=== PATIENT | male | born 1975 | race Caucasian/White ===

== ENCOUNTER 2024-10-21 13:57 | Observation (INO) | payer OTHER ==
[2024-10-21 14:13] LABS: Glucose,Whole Blood 122 mg/dL (70-110)
--- NOTE | 2024-10-21 14:34 | ED ---
General Adult HPI - General Chief complaint: Neuro Symptoms/Deficit Stated complaint: neuro symptoms, ETOH Time Seen by Provider: 10/21/24 14:05 Source: EMS, RN notes reviewed, old records reviewed Mode of arrival: EMS Limitations: altered mental status - History of Present Illness Initial comments: This is a 49-year-old male who admitted to EMS that he had been drinking today. Patient has supposedly a history of stroke EMS was called to scene because girlfriend stated he had some facial droop for the last 2 days according to her and was having difficulty walking. When I spoke with the patient he refused to answer any of my questions and did not want to be treated however he was intoxicated so we continue to treat the patient as if he was having a stroke even though there was no obvious signs of stroke at this time he no longer had a facial droop he did have a facial droop for EMS according to what I was told. Patient is moving all 4 extremities but he appears very intoxicated - Related Data Home Medications Medication Instructions Recorded Confirmed No Known Home Medications 10/21/24 10/21/24 Allergies Allergy/AdvReac Type Severity Reaction Status Date / Time peanut Allergy Itching Verified 10/21/24 14:22 Penicillins Allergy Rash/Hives Verified 10/21/24 14:22 Review of Systems ROS Statement: Those systems with pertinent positive or pertinent negative responses have been documented in the HPI. ROS Other: All systems not noted in ROS Statement are negative. Past Medical History Past Medical History: No Reported History History of Any Multi-Drug Resistant Organisms: None Reported Past Surgical History: Tonsillectomy Past Psychological History: No Psychological Hx Reported Smoking Status: Current every day smoker Past Alcohol Use History: Abuse, Daily Past Drug Use History: None Reported General Exam - General Exam Comments Initial Comments: GENERAL: Patient is well-developed and well-nourished. Patient is nontoxic and well- hydrated and is in no acute distress. Patient is intoxicated ENT: Neck is soft and supple. No significant lymphadenopathy is noted. Oropharynx is clear. Moist mucous membranes. Neck has full range of motion without eliciting any pain. EYES: The sclera were anicteric and conjunctiva were pink and moist. Extraocular movements were intact and pupils were equal round and reactive to light. Eyelids were unremarkable. PULMONARY: Unlabored respirations. Good breath sounds bilaterally. No audible rales rhonchi or wheezing was noted. CARDIOVASCULAR: There is a regular rate and rhythm without any murmurs gallops or rubs. ABDOMEN: Soft and nontender with normal bowel sounds. SKIN: Skin is clear with no lesions or rashes and otherwise unremarkable. NEUROLOGIC: Patient is alert and oriented x3. Cranial nerves II through XII are grossly intact. Patient appears to be moving all 4 extremities. Patient's speech is clear MUSCULOSKELETAL: Normal extremities with adequate strength and full range of motion. LYMPHATICS: No significant lymphadenopathy is noted PSYCHIATRIC: Patient is very uncooperative Limitations: altered mental status Course Vital Signs 10/21/24 10/21/24 14:01 14:59 Temperature 97.6 F Pulse Rate 123 H 111 H Respiratory 18 16 Rate Blood Pressure 185/125 154/108 O2 Sat by Pulse 97 98 Oximetry Medical Decision Making - Medical Decision Making EKG is interpreted by myself and EKG shows sinus tachycardia at 106 bpm AR 136 QRS 117 QT was 338 QTc is 400. Patient's EKG shows no ST segment elevation or d epression. Patient has a right bundle branch block Was pt. sent in by a medical professional or institution ([facility]IRSTEN Juan, FLOOR MOLDER, urgent care, hospital, or long-term...) When possible be specific @ -No Did you speak to anyone other than the patient for history (EMS, parent, family, police, friend...)? What history was obtained from this source @ -No Did you review nursing and triage notes (agree or disagree)? Why? @ -I reviewed and agree with nursing and triage notes Were old charts reviewed (outside hosp., previous admission, EMS record, old EKG, old radiological studies, urgent care reports/EKG's, long-term records)? Report findings @ -No old charts were reviewed Differential Diagnosis? @ -Differential Dyspnea: Differential CVA Ischemic stroke, hemorrhagic stroke, brain tumor, atypical migraine, Wernicke's encephalopathy, seizure, multiple sclerosis, meningitis, encephalitis, hypog lycemia, Guillain-Davila, electrolytes disturbance, myasthenia gravis.... This is not meant to be an all-inclusive list EKG interpreted by me (3pts min.). @ -As above X-rays interpreted by me (1pt min.). @ -No patient was uncooperative CT interpreted by me (1pt min.). @ -CT of the brain shows no acute normality. Patient was uncooperative for CT angiogram U/S interpreted by me (1pt. min.). @ -None done What testing was considered but not performed or refused? (CT, X-rays, U/S, labs)? Why? @ -None What meds were considered but not given or refused? Why? @ -None Did you discuss the management of the patient with other professionals (professionals i.e. Dr., PA, FLOOR MOLDER, lab, RT, psych nurse, health care social worker, whirley operator, teacher, strike operations officer, block and case maker)? Give summary @ -I spoke with sound physicians agreed to admit the patient admit the patient wrote admitting orders Was smoking cessation discussed for >3mins.? @ -No Was critical care preformed (if so, how long)? @ -No Were there social determinants of health that impacted care today? How? (Homelessness, low income, unemployed, alcoholism, drug addiction, transportation, low edu. Level, literacy, decrease access to med. care, long-term, rehab)? @ -No Was there de-escalation of care discussed even if they declined (Discuss DNR or withdrawal of care, Hospice)? DNR status @ -No What co-morbidities impacted this encounter? (DM, HTN, Smoking, COPD, CAD, Cancer, CVA, ARF, Chemo, Hep., AIDS, mental health diagnosis, sleep apnea, morbid obesity)? @ -None Was patient admitted / discharged? Hospital course, mention meds given and route, prescriptions, significant lab abnormalities, going to OR and other pertinent info. @ -Patient was highly intoxicated. Patient needed Ativan Haldol and Benadryl to be able to sit still for the CT scan. Patient was very uncooperative throughout his ED course. Finally patient was at rest when I admitted him. I spoke with angie physicians agreed to admit the patient Undiagnosed new problem with uncertain prognosis? @ -No Drug Therapy requiring intensive monitoring for toxicity (Heparin, Nitro, Insulin, Cardizem)? @ -No Were any procedures done? @ -No Diagnosis/symptom? @ -Alcohol intoxication Acute, or Chronic, or Acute on Chronic? @ -Acute Uncomplicated (without systemic symptoms) or Complicated (systemic symptoms)? @ -Complicate Side effects of treatment? @ -No Exacerbation, Progression, or Severe Exacerbation? @ -No Poses a threat to life or bodily function? How? (Chest pain, [place], [place], pneumonia, PE, COPD, DKA, ARF, appy, cholecystitis, CVA, Diverticulitis, Homicidal, Suicidal, threat to staff... and all critical care pts) @ -Yes this can lead to withdrawal and Diagnosis/symptom? @ -TIA Acute, or Chronic, or Acute on Chronic? @ -Acute Uncomplicated (without systemic symptoms) or Complicated (systemic symptoms)? @ -Complicated Side effects of treatment? @ -None Exacerbation, Progression, or Severe Exacerbation] @ -No Poses a threat to life or bodily function? @ -Yes this can lead to a CVA and - Lab Data Result diagrams: 10/21/24 14:32 10/21/24 14:32 Lab Results 10/21/24 10/21/24 10/21/24 Range/Units 14:12 14:32 14:32 WBC 9.65 (4.50-10.00) 10*3/uL RBC 5.06 (4.40-5.60) 10*6/uL Hgb 17.9 H (13.0-17.0) g/dL Hct 48.8 (39.6-50.0) % MCV 96.4 (80.0-97.0) fL MCH 35.4 H (27.0-32.0) pg MCHC 36.7 (32.0-37.0) g/dL Plt Count 229 (140-440) 10*3/uL MPV 11.2 (9.5-12.2) fL Immature Gran % (Auto) 0.2 % Neutrophils % 53.9 % Lymphocytes % 36.7 % Monocytes % 7.9 % Eosinophils % 0.5 % Basophils % 0.8 % Immature Gran # 0.02 (0.00-0.04) 10*3/uL Neutrophils # 5.20 (1.80-7.70) 10*3/uL Lymphocytes # 3.54 (0.90-5.00) 10*3/uL Monocytes # 0.76 (0.20-1.00) 10*3/uL Eosinophils # 0.05 (0.04-0.35) 10*3/uL Basophils # 0.08 (0.00-0.10) 10*3/uL PT 10.3 (10.0-12.5) sec INR 0.9 (<1.2) APTT 23.9 (22.0-30.0) sec Sodium (137-145) mmol/L Potassium (3.5-5.1) mmol/L Chloride (98-107) mmol/L Carbon Dioxide (22-30) mmol/L Anion Gap mmol/L BUN (9-20) mg/dL Creatinine (0.66-1.25) mg/dL Est GFR (CKD-EPI)AfAm (>60 ml/min/1.73 sqM) Est GFR (CKD-EPI)NonAf (>60 ml/min/1.73 sqM) Glucose (74-99) mg/dL POC Glucose (mg/dL) 122 H (70-110) mg/dL POC Glu Director Of Fundraising ID [place] Calcium (8.4-10.2) mg/dL Magnesium (1.6-2.3) mg/dL Total Bilirubin (0.2-1.3) mg/dL AST (17-59) U/L ALT (4-49) U/L Alkaline Phosphatase (38-126) U/L Creatine Kinase (55-170) U/L Troponin I (0.000-0.034) ng/mL Total Protein (6.3-8.2) g/dL Albumin (3.5-5.0) g/dL Serum Alcohol mg/dL 10/21/24 10/21/24 Range/Units 14:32 14:32 WBC (4.50-10.00) 10*3/uL RBC (4.40-5.60) 10*6/uL Hgb (13.0-17.0) g/dL Hct (39.6-50.0) % MCV (80.0-97.0) fL MCH (27.0-32.0) pg MCHC (32.0-37.0) g/dL Plt Count (140-440) 10*3/uL MPV (9.5-12.2) fL Immature Gran % (Auto) % Neutrophils % % Lymphocytes % % Monocytes % % Eosinophils % % Basophils % % Immature Gran # (0.00-0.04) 10*3/uL Neutrophils # (1.80-7.70) 10*3/uL Lymphocytes # (0.90-5.00) 10*3/uL Monocytes # (0.20-1.00) 10*3/uL Eosinophils # (0.04-0.35) 10*3/uL Basophils # (0.00-0.10) 10*3/uL PT (10.0-12.5) sec INR (<1.2) APTT (22.0-30.0) sec Sodium 146 H (137-145) mmol/L Potassium 4.2 (3.5-5.1) mmol/L Chloride 106 (98-107) mmol/L Carbon Dioxide 23 (22-30) mmol/L Anion Gap 17 mmol/L BUN 7 L (9-20) mg/dL Creatinine 0.83 (0.66-1.25) mg/dL Est GFR (CKD-EPI)AfAm >90 (>60 ml/min/1.73 sqM) Est GFR (CKD-EPI)NonAf >90 (>60 ml/min/1.73 sqM) Glucose 96 (74-99) mg/dL POC Glucose (mg/dL) (70-110) mg/dL POC Glu Director Of Fundraising ID Calcium 9.6 (8.4-10.2) mg/dL Magnesium 2.1 (1.6-2.3) mg/dL Total Bilirubin 0.6 (0.2-1.3) mg/dL AST 100 H (17-59) U/L ALT 86 H (4-49) U/L Alkaline Phosphatase 154 H (38-126) U/L Creatine Kinase 97 (55-170) U/L Troponin I <0.012 (0.000-0.034) ng/mL Total Protein 7.8 (6.3-8.2) g/dL Albumin 5.0 (3.5-5.0) g/dL Serum Alcohol 372 H* mg/dL Disposition Clinical Impression: Transient cerebral ischemia, Alcohol intoxication Disposition: ADMITTED IP TO THIS HOSP Referrals: None,Stated [Primary Care Provider] - 1-2 days Time of Disposition: 17:47
[2024-10-21] MEDS: LORazepam 1 MG/0.5 ML VIAL IV STA (14:37)
[2024-10-21] MEDS: HALOPERIDOL LACTATE 5 MG/ML 1 ML VIAL IM STA (14:42)
[2024-10-21 14:43] LABS: Basophils # (A) 0.08 10*3/uL (0.00-0.10); Basophils % (A) 0.8 %; Eosinophils # (A) 0.05 10*3/uL (0.04-0.35); Eosinophils % (A) 0.5 %; HCT 48.8 % (39.6-50.0); HGB 17.9 g/dL (13.0-17.0); Lymphocytes # (A) 3.54 10*3/uL (0.90-5.00); Lymphocytes % (A) 36.7 %; MCH 35.4 pg (27.0-32.0); MCHC 36.7 g/dL (32.0-37.0); MCV 96.4 fL (80.0-97.0); Mean Platelet Volume 11.2 fL (9.5-12.2); Monocytes # (A) 0.76 10*3/uL (0.20-1.00); Monocytes % (A) 7.9 %; Neutrophils % (A) 53.9 %; Platelet Count 229 10*3/uL (140-440); RBC 5.06 10*6/uL (4.40-5.60); RDW 11.7 % (11.5-14.5); WBC 9.65 10*3/uL (4.50-10.00)
[2024-10-21] MEDS: SODIUM CHLORIDE 0.9% 1,000 ML IV STA (14:47)
[2024-10-21] MEDS: SODIUM CHLORIDE 0.9% 500 ML 500 ML IV STA (14:48)
[2024-10-21] MEDS: MAGNESIUM SULFATE-D5W PMX 1 GM in DEXTROSE/WATER 1 100ML.BAG IVPB SCH (14:51)
[2024-10-21 14:52] LABS: INR 0.9 (<1.2); Partial Thromboplastin Time 23.9 sec (22.0-30.0); Prothrombin Time 10.3 sec (10.0-12.5)
[2024-10-21 14:56] LABS: ALT 86 U/L (4-49); AST 100 U/L (17-59); African American GFR (CKD) >90 (>60 ml/min/1.73 sqM); Alkaline Phosphatase 154 U/L (38-126); Anion Gap 17 mmol/L; Blood Urea Nitrogen 7 mg/dL (9-20); Calcium 9.6 mg/dL (8.4-10.2); Carbon Dioxide 23 mmol/L (22-30); Chloride 106 mmol/L (98-107); Creatine Kinase 97 U/L (55-170); Glucose 96 mg/dL (74-99); Magnesium 2.1 mg/dL (1.6-2.3); Non-African American GFR(CKD) >90 (>60 ml/min/1.73 sqM); Potassium 4.2 mmol/L (3.5-5.1); Sodium 146 mmol/L (137-145); Total Bilirubin 0.6 mg/dL (0.2-1.3); Total Protein 7.8 g/dL (6.3-8.2)
[2024-10-21 15:15] LABS: Alcohol 372 mg/dL
[2024-10-21] MEDS: diphenhydrAMINE 50 MG/ML 1 ML VIAL IVP STA (15:22)
--- NOTE | 2024-10-21 16:36 | CT ---
EXAMINATION TYPE: CT brain wo con DATE OF EXAM: 10/21/2024 4:31 PM COMPARISON: None. CLINICAL INDICATION: Male, 49 years old with history of Neuro deficit, acute, stroke suspected, AMS TECHNIQUE: CT of the brain is performed utilizing 3 mm thick sections through the posterior fossa and 3 mm thick sections through the remaining calvarium. Study is performed within 24 hours of arrival to the hospital. Contrast used: mL of , (none if empty) CT DLP: combined 2353.7 mGycm, Automated exposure control for dose reduction was used. FINDINGS: No abnormal hyperdensity is present to suggest an acute intracranial hemorrhage. No mass lesion is evident. No acute infarcts are evident. Ventricles and sulci are appropriate for the patient age. Paranasal sinuses and mastoid air cells within the [id number] are clear. IMPRESSION: 1. No acute intracranial process. Follow up MRI can be performed as clinically indicated. [facility], , 10/21/2024 4:33 PM
--- NOTE | 2024-10-21 16:39 | CT ---
EXAMINATION TYPE: CT angio head neck DATE OF EXAM: 10/21/2024 4:32 PM COMPARISON: None. CLINICAL INDICATION: Male, 49 years old with history of Neuro deficit, AMS TECHNIQUE: CTA scan is performed with axial images are obtained, coronal and sagittal reformatted mami ges are reviewed. MIP images created on a separate workstation and submitted for review. 3-D reconstr ucted images are created on an independent workstation and reviewed. Source images are reviewed. LAURA CET criteria was used in interpretation of this exam? Contrast used:65mL mL of Isovue 370 without and with IV Contrast, (none if empty) Oral contrast used: (none if empty) CT DLP: 2353.7 mGycm, Automated exposure control for dose reduction was used. FINDINGS: Other: Patient combative with sedation. Images nondiagnostic Procedure was terminated. IMPRESSION: 1. Nondiagnostic examination. [facility], , 10/21/2024 4:37 PM
[2024-10-21] MEDS ORDERED: LORazepam 1 MG/0.5 ML VIAL IV PRN (17:40)
[2024-10-21] MEDS ORDERED: LORazepam 0.5 MG TAB PO PRN (17:40)
[2024-10-21] MEDS ORDERED: LORazepam 1 MG TAB PO PRN ×2 (17:40)
--- NOTE | 2024-10-21 18:18 | P.HPIM ---
History of Present Illness H&P Date: 10/21/24 History of Presenting Illness: Patient is a 49-year-old male with a past medical history of daily alcohol abuse and nicotine dependence. He presented to the emergency department via EMS r eports that patient's girlfriend was concerned of facial droop and difficulty walking x 2 days.. Upon arrival to our facility, patient had no noted facial droop but became uncooperative and combative with ER staff resulting in need for sedative medication administration and restraints. Vital signs showing blood pressure 185/125, heart rate 123, respiratory rate 18, temp 97.6 F, and SpO2 of 97% on room air. [id number] glucose 122. EKG was completed showing sinus tachycardia with a right bundle branch block 106 bpm with no significant T wave or ST abnormality showing no signs of acute ischemia upon personal review and interpretation. CT brain negative for acute intracranial process. CTA head and neck with a nondiagnostic examination as procedure was terminated secondary to combative behaviors despite sedation. Labs were completed and reviewed. CBC showing elevated hemoglobin of 17.9 and MCH of 35.4. Coagulation profile normal findings. BMP showing hyponatremia with sodium of 146 otherwise unremarkable. Magnesium 2.1. Calcium 9.6. Liver profile showing transaminitis with AST of 100, ALT of 86, and alkaline phosphatase of 154. Creatinine kinase 97. Troponin was negative at less than 0.012. Serum alcohol level was elevated at 372. Patient seen and fully evaluated in ER room 1. Full ROS unable to be completed secondary to patient currently sedated after receiving medications in the emergency department accompanied by elevated alcohol level and information rec eived gathered from chart and verbal report from ED nurse and ER physician.. Patient does respond to tactile stimulation moving or jerking her arm away and rolling over onto his side independently. Patient was noted to move all extremities independently with no noted signs of deficit and no facial droop noted. Patient did not or would not verbally respond to provider so unable to assess speech at this time. Review of systems: Unable to complete full ROS secondary to patient's mentation at this time. Physical exam: Vital signs reviewed at time of exam blood pressure 154/108, heart rate 111, respiratory rate 20, and SpO2 of 98% on room air. General: Nontoxic, no distress and appears stated age. Derm: Skin warm and dry, normal coloration for ethnicity. Head: Atraumatic, normocephalic and symmetric.. No obvious injury or bruising noted. Eyes: No lid lag, and anicteric sclera Mouth: no lip lesions, mucus membranes moist Cardiovascular: regular rate and rhythm with normal S1S2, no murmur, positive posterior tibial pulses bilaterally, and cap refill < 2 seconds. Lungs: Respirations even, regular, and unlabored on room air. Lungs CTA bilaterally, no rhonchi, no rales, no wheezing, and no accessory muscle usage. Abdominal: soft, nontender to palpation, no guarding, no appreciable organomegaly Ext No gross muscle atrophy, no edema, no contractures. Patient moving all extremities independently with no noted deficits. Neuro/psych: Face symmetrical, no obvious deficit noted. Patient sedated at this time, withdrawing from tactile stimuli jerking arms away and leg away and rolled over onto his side in. bed. Patient not following commands. Assessment and Plan of Care: Alcohol intoxication and active alcoholic Metabolic encephalopathy with combative behaviors, likely secondary to above Transaminitis, likely secondary to daily alcohol abuse -CT brain was negative for acute intracranial process. -Order placed for monitoring of CIWA scores and patient to be medicated with Ativan 0.5 mg every 4 hours as needed for CIWA score of 4-5, Ativan 1 mg every 4 hours for CIWA score of 6-7, Ativan 2 mg every 3 hours CIWA score of 8-9, and Ativan 2 mg every 2 hours forr CIWA score of 10 or greater. -Continuous IV hydration. 0.9% normal saline at 100 mL/h. -Thiamine 100 mg daily, and Multivitamin daily, and Folate 1 mg daily -Seizure, fall, aspiration, and elopement precautions in place. -Urine drug screen -Continued close monitoring of electrolytes and replace as needed. -Telemetry monitoring. - Neurochecks Data and imaging reviewed: -As stated above in HPI. CODE STATUS: Full code DVT prophylaxis: Lovenox Discussed with: Patient, RN, sitter at bedside, and ED physician Anticipated discharge date: Pending clinical course Anticipated discharge place: Likely home, pending clinical Patient was seen independently by Nurse Practitioner. This document was prepared using [employer] dictation software. Please allow for errors in bailing machine operator while rare they do occur. Ayo Rodriguez NP rendered care for this patient independently, reviewed the findings and plan as documented in the note above and agree with plan. I did not physically speak with or examine the patient on this date. Past Medical History Past Medical History: No Reported History History of Any Multi-Drug Resistant Organisms: None Reported Past Surgical History: Tonsillectomy Past Psychological History: No Psychological Hx Reported Smoking Status: Current every day smoker Past Alcohol Use History: Abuse, Daily Past Drug Use History: None Reported Medications and Allergies Home Medications Medication Instructions Recorded Confirmed Type No Known Home Medications 10/21/24 10/21/24 History Allergies Allergy/AdvReac Type Severity Reaction Status Date / Time peanut Allergy Itching Verified 10/21/24 14:22 Penicillins Allergy Rash/Hives Verified 10/21/24 14:22 Physical Exam Vitals: Vital Signs Temp Pulse Resp BP Pulse Ox 10/21/24 14:59 111 H 16 154/108 98 10/21/24 14:01 97.6 F 123 H 18 185/125 97 Intake and Output 10/21/24 10/21/24 10/21/24 06:59 14:59 22:59 Other: Weight 99.79 kg Results CBC & Chem 7: 10/21/24 14:32 10/21/24 14:32 Labs: Abnormal Lab Results - Last 24 Hours (Table) 10/21/24 10/21/24 10/21/24 Range/Units 14:12 14:32 14:32 Hgb 17.9 H (13.0-17.0) g/dL MCH 35.4 H (27.0-32.0) pg Sodium 146 H (137-145) mmol/L BUN 7 L (9-20) mg/dL POC Glucose (mg/dL) 122 H (70-110) mg/dL AST 100 H (17-59) U/L ALT 86 H (4-49) U/L Alkaline Phosphatase 154 H (38-126) U/L Serum Alcohol 372 H* mg/dL
[2024-10-21] MEDS: SODIUM CHLORIDE 0.9% 1,000 ML IV ONE (19:00)
--- NOTE | 2024-10-21 19:14 | XR ---
EXAMINATION TYPE: XR chest 1V portable DATE OF EXAM: 10/21/2024 7:08 PM COMPARISON: None. CLINICAL INDICATION: Male, 49 years old with history of Short of breath, TECHNIQUE: XR chest 1V portable view(s) obtained. FINDINGS: The heart size is normal. The pulmonary vasculature is normal. The lungs are clear. IMPRESSION: 1. No acute pulmonary process. [facility], , 10/21/2024 7:12 PM
[2024-10-21] MEDS: NICOTINE 21MG/24HR PATCH TRANSDERM STA (21:55)
[2024-10-22 01:12] LABS: Amphetamine Screen,Urine Not Detected (NotDetected); Barbiturate Screen,Urine Not Detected (NotDetected); Benzodiazepines Screen,Urine Detected (NotDetected); Cocaine Screen,Urine Not Detected (NotDetected); Methadone Screen, Urine Not Detected (NotDetected); Opiate Screen,Urine Not Detected (NotDetected); Oxycodone Screen, Urine Not Detected (NotDetected); Phencyclidine Screen,Urine Not Detected (NotDetected); Tricyclic Antidepressant,Urine Not Detected (NotDetected); Urn Cannabinoid Scrn Not Detected (NotDetected)
[2024-10-22] MEDS: LORazepam 1 MG TAB PO PRN ×2 (03:58→06:47)
[2024-10-22 07:20] LABS: HCT 41.1 % (39.6-50.0); MCH 34.6 pg (27.0-32.0); MCV 98.8 fL (80.0-97.0); Mean Platelet Volume 11.4 fL (9.5-12.2); Platelet Count 171 10*3/uL (140-440); RBC 4.16 10*6/uL (4.40-5.60); RDW 11.8 % (11.5-14.5); WBC 5.28 10*3/uL (4.50-10.00)
[2024-10-22 07:31] LABS: HGB 14.4 g/dL (13.0-17.0)
[2024-10-22 07:35] LABS: ALT 65 U/L (4-49); AST 70 U/L (17-59); African American GFR (CKD) >90 (>60 ml/min/1.73 sqM); Albumin 3.9 g/dL (3.5-5.0); Alkaline Phosphatase 131 U/L (38-126); Anion Gap 11 mmol/L; Blood Urea Nitrogen 7 mg/dL (9-20); Calcium 8.7 mg/dL (8.4-10.2); Carbon Dioxide 23 mmol/L (22-30); Chloride 105 mmol/L (98-107); Glucose 75 mg/dL (74-99); Magnesium 1.9 mg/dL (1.6-2.3); Non-African American GFR(CKD) >90 (>60 ml/min/1.73 sqM); Potassium 3.6 mmol/L (3.5-5.1); Sodium 139 mmol/L (137-145); Total Bilirubin 0.8 mg/dL (0.2-1.3); Total Protein 6.2 g/dL (6.3-8.2)
[2024-10-22] MEDS: ENOXAPARIN 40 MG/0.4 ML SYRINGE SQ SCH (08:26)
[2024-10-22] MEDS: THIAMINE 100 MG TAB PO SCH (08:26)
--- NOTE | 2024-10-22 12:07 | P.DS ---
Providers Date of admission: 10/21/24 17:55 Expected date of discharge: 10/22/24 Attending physician: Yumiko Hamm MD Primary care physician: Stated None Hospital Course: Discharge Diagnosis: Alcohol withdraw Alcohol intoxication in active alcoholic upon arrival. Metabolic encephalopathy with combative behaviors, likely secondary to above and resolved. Transaminitis, likely secondary to daily alcohol abuse Hospital Course: Patient is a 49-year-old male with a past medical history of daily alcohol abuse and nicotine dependence. He presented to the emergency department via EMS repor ts that patient's girlfriend was concerned of facial droop and difficulty walking x 2 days.. Upon arrival to our facility, patient had no noted facial droop but became uncooperative and combative with ER staff resulting in need for sedative medication administration and restraints. Vital signs showing blood pressure 185/125, heart rate 123, respiratory rate 18, temp 97.6 F, and SpO2 of 97% on room air. [id number] glucose 122. EKG was completed showing sinus tachycardia with a right bundle branch block 106 bpm with no significant T wave or ST abnormality showing no signs of acute ischemia upon personal review and interpretation. CT brain negative for acute intracranial process. CTA head and neck with a nondiagnostic examination as procedure was terminated secondary to combative behaviors despite sedation. Labs were completed and reviewed. CBC showing elevated hemoglobin of 17.9 and MCH of 35.4. Coagulation profile normal findings. BMP showing hyponatremia with sodium of 146 otherwise unremarkable. Magnesium 2.1. Calcium 9.6. Liver profile showing transaminitis with AST of 100, ALT of 86, and alkaline phosphatase of 154. Creatinine kinase 97. Troponin was negative at less than 0.012. Serum alcohol level was elevated at 372. Patient was admitted under our services and underwent close monitoring throughout the night. He received IV fluid hydration and was placed on CIWA protocol with symptom triggered medication management with benzodiazepines for alcohol withdrawal. Patient is clinically sober and currently stating he is ready for discharge. He denies having any neurological complaints and no neurological deficits noted. GCS is 15 speech is clear and patient states he is ready to go home. He denies having headache, lightheadedness, dizziness, chest pain, palpitations, shortness of breath, or experiencing any numbness/tingling/weakness in his extremities. Patient does admit to mild nausea and has mild upper extremity tremors noted likely secondary to alcohol withdraw. Patient was offered assistance with placement in outpatient drug and alcohol rehabilitation facility but adamantly declined. Patient reports that he drinks anywhere from a pint to 1/5 daily and at this time does not plan on stopping. Patient was provided with outpatient resources available to him including local AA meetings, outpatient counseling, and a list of local npatient substance abuse facilities should he change his mind. Morning labs reviewed and vital signs stable. Patient medically optimized for discharge at this time and was strongly advised to avoid any and all alcohol use. Physical exam: Vital signs reviewed and stable. Blood pressure 130/80, heart rate 78, respiratory rate 18, temp 98.1 F, and SpO2 of 96% on room air General: Nontoxic, no distress and appears stated age. Derm: Skin warm and dry, normal coloration for ethnicity. Head: Atraumatic, normocephalic and symmetric. Eyes: EOM's intact, no lid lag, and anicteric sclera Mouth: no lip lesions, mucus membranes moist Cardiovascular: regular rate and rhythm with normal S1S2, no murmur, positive posterior tibial pulses bilaterally, and cap refill < 2 seconds. Lungs: Respirations even, regular, and unlabored on room air. Lungs CTA bilaterally, no rhonchi, no rales, no wheezing, and no accessory muscle usage. Abdominal: soft, nontender to palpation, no guarding, no appreciable organomegaly Ext: ROM intact. No gross muscle atrophy, no edema, no contractures Neuro: Speech clear, face symmetrical and CN II-XII grossly intact with no noted focal neuro deficits Psych: Alert and oriented to person, place, time, and situation. Appropriate and pleasant affect. A total of 34 minutes of time were spent preparing this complex discharge summary. Pt was discharged on 10/22/2024 at 12:05 PM Patient was seen independently by Nurse Practitioner. This document was prepared using [employer] dictation software. Please allow for errors in general science teacher while rare they do occur. Ayo Rodriguez NP rendered care for this patient independently, reviewed the findings and plan as documented in the note above. I did not physically speak with or examine the patient on this date. Patient Condition at Discharge: Stable Plan - Discharge Summary New Discharge Prescriptions: No Action No Known Home Medications Discharge Medication List No Known Home Medications 10/21/24 [History] Follow up Appointment(s)/Referral(s): None,Stated [Primary Care Provider] - 1-2 days [facility] [NON-STAFF] - 1-2 days (Clinic for [facility] residents with no insurance or who are under insured.) Patient Instructions/Handouts: Alcohol Intoxication (DC), Abuse of Alcohol (DC) Activity/Diet/Wound Care/Special Instructions: Activity: As tolerated. Take breaks as needed. Diet: Heart healthy and carb consistent diet. Special Instructions: Take all of your medications as directed and remember to keep all of your doctor's appointments and follow-up as needed. Strongly recommend avoiding any and all alcohol use. Recommend reconsideration of inpatient drug and alcohol rehabilitation facilities such as [facility]. Outpatient resources were provided in your discharge instructions including local AA meetings, counseling services, and inpatient rehabs if you change your mind. Thank you for allowing us to participate in your care, it was truly a pleasure having you for our patient!!! Discharge/Stand Alone Forms: AA Meetings [facility], Outpatient Counseling, Inp Substance Abuse Facilities, Area PCPs Discharge Disposition: HOME SELF-CARE
[2024-10-22 12:16] VITALS: BP 130/80; PULSE 78; RESP 18; TEMP 98.1
== END 2024-10-22 12:16 | disposition home or self-care (01) ==
LOC: EC 13:57 → 3SCARD 17:55
PROVIDERS: ADMIT Student in an Organized Health Care Education/Training Program; ATTEND Student in an Organized Health Care Education/Training Program
DX: F10.129 Alcohol abuse with intoxication, unspecified (principal); F10.139 Alcohol abuse with withdrawal, unspecified; E87.1 Hypo-osmolality and hyponatremia; G93.41 Metabolic encephalopathy; F17.200 Nicotine dependence, unspecified, uncomplicated; I45.10 Unspecified right bundle-branch block; R74.01 Elevation of levels of liver transaminase levels; Z88.0 Allergy status to penicillin
CPT/HCPCS: 96361 ×2; 96365; 96366; 96372 ×2; 96374; 96375; 99285; 36415; 93005; 80053 ×2; 82550; 83735 ×2; 84484; 85025; 85027; 85610; 85730; 80306; 80320; 71045; 70496; 70450; 70498; G0378 ×2; J2060; J1200; J1630; J1650; J3475; Q9967